=== PATIENT | male | born 1980 | race American Indian/Alaskan Native ===

== ENCOUNTER 2018-09-06 17:56 | Emergency (ER) | payer OTHER ==
[2018-09-06] MEDS ORDERED: Doxycycline 100 MG Cap PO ONE ×2 (17:57→18:22)
[2018-09-06] MEDS ORDERED: Bacitracin Oint 1 GM U/D Packet TOP ONE (18:21)
--- NOTE | 2018-09-06 18:32 | EDM.PDOC ---
Scribed by Ban Rosen 09/06/18 [id number] for Ambar Briones NP ED HPI GENERAL MEDICAL PROBLEM - General Chief Complaint: Upper Extremity Injury/Pain Stated Complaint: INFECTED FINGER RT HAND Time Seen by Provider: 09/06/18 18:05 Source of Information: Reports: Patient, RN, RN Notes Reviewed History Limitations: Reports: No Limitations - History of Present Illness INITIAL COMMENTS - FREE TEXT/NARRATIVE: Patient presented to ER with complaint of swollen, red, painful right index finger. He noticed this evening when he bumped it against a wall. There is swelling, erythema, pain progressively worse. States he does bite his fingernails and had noticed a hangnail. He has had no fever, chills, nausea, vomiting or diarrhea. Denies MRSA. Onset: Gradual Duration: Getting Worse Location: Reports: Upper Extremity, Right Quality: Reports: Ache Severity: Mild Improves with: Reports: None Worsens with: Reports: None Associated Symptoms: Reports: No Other Symptoms Right Hand Pain Score (Numeric/FACES): 7 - Related Data Home Meds: Home Meds . [No Known Home Meds] 09/06/18 [History] Review of Systems - Review of Systems Review Of Systems: ROS reveals no pertinent complaints other than HPI. ED EXAM, GENERAL - Physical Exam Exam: See Below Exam Limited By: No Limitations General Appearance: Alert, WD/WN, No Apparent Distress Eye Exam: Bilateral Eye: EOMI, Normal Inspection, PERRL Ears: Normal External Exam, Normal Canal, Hearing Grossly Normal, Normal TMs Nose: Normal Inspection, Normal Mucosa, No Blood Throat/Mouth: Normal Inspection, Normal Lips, Normal Teeth, Normal Gums, Normal Oropharynx, Normal Voice, No Airway Compromise Head: Atraumatic, Normocephalic Neck: Normal Inspection, Supple, Non-Tender, Full Range of Motion Respiratory/Chest: No Respiratory Distress, Lungs Clear, Normal Breath Sounds, No Accessory Muscle Use, Chest Non-Tender Cardiovascular: Normal Peripheral Pulses, Regular Rate, Rhythm, No Edema, No Gallop, No JVD, No Murmur, No Rub GI/Abdominal: Normal Bowel Sounds, Soft, Non-Tender, No Organomegaly, No Distention, No Abnormal Bruit, No Mass (Male) Exam: Deferred Rectal (Males) Exam: Deferred Back Exam: Normal Inspection, Full Range of Motion, NT Extremities: Normal Inspection, Normal Range of Motion, Non-Tender, Normal Capillary Refill, No Pedal Edema Neurological: Alert, Oriented, CN II-XII Intact, Normal Cognition, Normal Gait, Normal Reflexes, No Motor/Sensory Deficits Psychiatric: Normal Affect, Normal Mood Skin Exam: Other (right index finger swollen, red, painful from tip of finger to IPJ.) Lymphatic: No Adenopathy Course - Vital Signs Last Recorded V/S: Last Vital Signs Temp 98.0 F 09/06/18 18:03 Pulse 104 H 09/06/18 18:03 Resp 16 09/06/18 18:03 BP 134/89 09/06/18 18:03 Pulse Ox 100 09/06/18 18:03 - Orders/Labs/Meds Orders: Active Orders 24 hr Category Date Time Status CULTURE WOUND [RM] Urgent Lab 09/06/18 18:20 Ordered Meds: Medications Discontinued Medications Generic Name Dose Route Start Last Admin Trade Name Freq PRN Reason Stop Dose Admin Bacitracin 1 dose 09/06/18 18:21 Bacitracin Oint 1 Gm TOP 09/06/18 18:22 ONETIME ONE Doxycycline Hyclate 100 mg 09/06/18 18:22 Vibramycin PO 09/06/18 18:23 ONETIME ONE Departure - Departure Time of Disposition: 18:28 Disposition: Home, Self-Care 01 Condition: Fair Clinical Impression: Cellulitis and abscess of finger, unspecified - Discharge Information *PRESCRIPTION DRUG MONITORING PROGRAM REVIEWED*: No *COPY OF PRESCRIPTION DRUG MONITORING REPORT IN PATIENT ART: No Instructions: Cellulitis, Adult, [id number], Skin Abscess, [id number] Forms: ED Department Discharge Additional Instructions: RX: Doxycycline Use warm compresses on the finger May use bacitracin on the finger when changing the bandage Follow up with your primary care facility if no improvement - My Orders Last 24 Hours: My Active Orders 09/06/18 18:20 CULTURE WOUND [RM] Urgent - Assessment/Plan Last 24 Hours: My Active Orders 09/06/18 18:20 CULTURE WOUND [RM] Urgent I have read and agree with the documentation that has been completed regarding this visit. By signing this record, I attest that the documentation was completed in my physical presence and is an accurate record of the encounter.
[2018-09-06] MEDS ORDERED: Doxycycline 100 MG Cap ONE (18:34)
== END 2018-09-06 18:38 | disposition home or self-care (01) ==
LOC: DL.ED 17:56
DX: L03.011 Cellulitis of right finger (principal)
CPT/HCPCS: 87070; 99283; A9270; 87077; 87186

== ENCOUNTER 2020-09-14 19:44 | Emergency (ER) | payer SELFPAY ==
--- NOTE | 2020-09-14 21:01 | EDM.PDOC ---
ED HPI GENERAL MEDICAL PROBLEM - General Chief Complaint: Lower Extremity Injury/Pain Stated Complaint: BOTH KNEES HURTING. Time Seen by Provider: 09/14/20 20:20 Source of Information: Reports: Patient History Limitations: Reports: No Limitations - History of Present Illness INITIAL COMMENTS - FREE TEXT/NARRATIVE: ED ambulatory with c/o bilateral knee pain since yesterday. Denies injury, No calf or leg pain, Admits more walking last few days since weather nicer. Reports no redness. No swelling. No fever. No hx of arthritis or STD. Tylenol one tme yesterday at 2 pm. Bilateral Knee Pain Score (Numeric/FACES): 8 - Related Data Allergies Allergy/AdvReac Type Severity Reaction Status Date / Time No Known Allergies Allergy Verified 09/14/20 20:13 Home Meds: Home Meds . [No Known Home Meds] 09/06/18 [History] Past Medical History - Past Health History Medical/Surgical History: Denies Medical/Surgical History Social & Family History - Family History Family Medical History: No Pertinent Family History - Caffeine Use Caffeine Use: Reports: Soda Review of Systems - Review of Systems Review Of Systems: Comprehensive ROS is negative, except as noted in HPI. ED EXAM, GENERAL - Physical Exam Exam: See Below Exam Limited By: No Limitations General Appearance: Alert, Anxious Eye Exam: Bilateral Eye: EOMI, PERRL Ears: Normal External Exam, Hearing Grossly Normal Nose: Normal Inspection Throat/Mouth: Normal Voice Head: Atraumatic, Normocephalic Neck: Normal Inspection Respiratory/Chest: No Respiratory Distress, Lungs Clear, Normal Breath Sounds Cardiovascular: Regular Rate, Rhythm, No Murmur Extremities: Other (tender bilateral lateral knees over lateral bony prominence. No laxity. slight limitation in flexion on right. No crepitus. ). No: Joint Swelling, Leg Pain, Increased Warmth, Pallor, Redness Neurological: Alert, Oriented, Normal Cognition, No Motor/Sensory Deficits Psychiatric: Anxious, Other (presured speech) Skin Exam: Warm, Dry, Intact, Normal Color, No Rash. No: Erythema, Increased Warmth, Wound/Incision Course - Vital Signs Last Recorded V/S: Last Vital Signs Temp 99.0 F 09/14/20 20:04 Pulse 95 09/14/20 20:04 Resp 18 09/14/20 20:04 BP 117/69 09/14/20 20:04 Pulse Ox 98 09/14/20 20:04 Departure - Departure Time of Disposition: 20:59 Disposition: Home, Self-Care 01 Condition: Good Clinical Impression: Knee pain, bilateral Qualifiers: Chronicity: acute Qualified Code(s): M25.561 - Pain in right knee - Discharge Information *PRESCRIPTION DRUG MONITORING PROGRAM REVIEWED*: No *COPY OF PRESCRIPTION DRUG MONITORING REPORT IN PATIENT ART: No Instructions: Musculoskeletal Pain Referrals: PCP,None [Primary Care Provider] - Forms: ED Department Discharge Additional Instructions: alternate tylenol and ibuprofen every 4 hours as needed light activity clinic follow up Sepsis Event Note (ED) - Evaluation Sepsis Screening Result: No Definite Risk - Focused Exam Vital Signs: Vital Signs Temp Pulse Resp BP Pulse Ox 09/14/20 20:04 99.0 F 95 18 117/69 98
== END 2020-09-14 21:05 | disposition home or self-care (01) ==
LOC: DL.ED 19:44
DX: M25.561 Pain in right knee (principal)
CPT/HCPCS: 99283

== ENCOUNTER 2020-12-12 21:10 | Emergency (ER) | payer OTHER ==
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
--- NOTE | 2020-12-12 21:48 | CT ---
PROCEDURE INFORMATION: Exam: CT Head Without Contrast Exam date and time: 12/12/2020 9:24 PM Age: 39 years old Clinical indication: Injury or trauma; Fall; Injury date: Today; Additional info: Fell in shower TECHNIQUE: Imaging protocol: Computed tomography of the head without contrast. Radiation optimization: All CT scans at this facility use at least one of these dose optimization techniques: automated exposure control; mA and/or kV adjustment per patient size (includes targeted exams where dose is matched to clinical indication); or iterative reconstruction. COMPARISON: No relevant prior studies available. FINDINGS: Brain: Normal. No hemorrhage. Unremarkable white matter. No mass effect. Cerebral ventricles: No ventriculomegaly. Paranasal sinuses: Visualized sinuses are unremarkable. No fluid levels. Mastoid air cells: Visualized mastoid air cells are well aerated. Bones/joints: Unremarkable. No acute fracture. Soft tissues: Unremarkable. IMPRESSION: No acute intracranial abnormality.
--- NOTE | 2020-12-12 21:50 | CT ---
PROCEDURE INFORMATION: Exam: CT Thoracic Spine Without Contrast Exam date and time: 12/12/2020 9:24 PM Age: 39 years old Clinical indication: Injury or trauma; Fall; Injury date: Today; Additional info: Fell in shower TECHNIQUE: Imaging protocol: Computed tomography images of the thoracic spine without contrast. Radiation optimization: All CT scans at this facility use at least one of these dose optimization techniques: automated exposure control; mA and/or kV adjustment per patient size (includes targeted exams where dose is matched to clinical indication); or iterative reconstruction. COMPARISON: No relevant prior studies available. FINDINGS: Vertebrae: No acute fracture. Normal alignment. Discs/Spinal canal/Neural foramina: No significant disc protrusion. No severe spinal canal stenosis. No significant neural foraminal narrowing. Soft tissues: Unremarkable. IMPRESSION: Unremarkable thoracic spine.
--- NOTE | 2020-12-12 21:53 | CT ---
PROCEDURE INFORMATION: Exam: CT Cervical Spine Without Contrast Exam date and time: 12/12/2020 9:24 PM Age: 39 years old Clinical indication: Injury or trauma; Fall; Injury date: Today; Additional info: Fell in shower TECHNIQUE: Imaging protocol: Computed tomography images of the cervical spine without contrast. Radiation optimization: All CT scans at this facility use at least one of these dose optimization techniques: automated exposure control; mA and/or kV adjustment per patient size (includes targeted exams where dose is matched to clinical indication); or iterative reconstruction. COMPARISON: No relevant prior studies available. FINDINGS: Bones/joints: No acute fracture. Normal alignment. Discs/Spinal canal/Neural foramina: No significant disc protrusion. No severe spinal canal stenosis. No significant neural foraminal narrowing. Lungs: Lung apices are normal. Soft tissues: Unremarkable. IMPRESSION: No acute findings.
--- NOTE | 2020-12-12 21:57 | CT ---
PROCEDURE INFORMATION: Exam: CT Lumbar Spine Without Contrast Exam date and time: 12/12/2020 9:24 PM Age: 39 years old Clinical indication: Injury or trauma; Fall; Injury date: Today; Additional info: Fell in shower TECHNIQUE: Imaging protocol: Computed tomography images of the lumbar spine without contrast. Radiation optimization: All CT scans at this facility use at least one of these dose optimization techniques: automated exposure control; mA and/or kV adjustment per patient size (includes targeted exams where dose is matched to clinical indication); or iterative reconstruction. COMPARISON: No relevant prior studies available. FINDINGS: Vertebrae: No acute fracture. Normal alignment. Discs/Spinal canal/Neural foramina: No significant disc protrusion. No severe spinal canal stenosis. No significant neural foraminal narrowing. Soft tissues: Unremarkable. IMPRESSION: Unremarkable spine.
[2020-12-12] MEDS ORDERED: Acetaminophen 325 MG Tab PO ONE (22:56)
== END 2020-12-12 22:48 ==
LOC: DL.ED 21:10
DX: S00.03XA Contusion of scalp, initial encounter (principal); W18.2XXA Fall in (into) shower or empty bathtub, initial encounter; Y92.002 Bathroom of unspecified non-institutional (private) residence as the place of occurrence of the external cause
CPT/HCPCS: 70450; 72125; 72128; 72131; 99284; A9270

== ENCOUNTER 2024-11-03 08:59 | Emergency (ER) | payer SELFPAY ==
[2024-11-03] MEDS ORDERED: Lidocaine 1% with EPINEPHrine 1:100,000 20 ML MDV INJECT ONE (09:03)
== END 2024-11-03 10:03 | disposition home or self-care (01) ==
LOC: DL.ED 08:59
DX: S01.01XA Laceration without foreign body of scalp, initial encounter (principal); Y04.0XXA Assault by unarmed brawl or fight, initial encounter; Y93.89 Activity, other specified
CPT/HCPCS: 12002; 70450; 99284